=== PATIENT | male | born 1980 | race Caucasian/White ===

== ENCOUNTER 2019-07-30 08:01 | Outpatient (CLI) | payer OTHER, SELFPAY ==
[2019-07-30] VITALS (9 sets, daily range): BP systolic 106–123; BP diastolic 73–88; PULSE 66–98; RESP 16; TEMP 36.7; O2SAT 96–100
--- NOTE | 2019-07-30 08:03 | DI.RAD.S_ITS ---
PROCEDURE: PAIN C/T FACET INJ/BLK 1ST L INDICATIONS: SPONDYLOSIS WITH RADICULOPATHY FINDINGS: Fluoroscopic spot filming was performed to verify placement of spinal needles at the C4-C5, C5-C6 level(s), as labeled on the films. Appropriate location(s) of the needle tip(s) was confirmed by injection of iodinated contrast. Dictated by: Theron Hayward M.D. on 07/30/2019 at 11:29 Approved by: Theron Hayward M.D. on 07/30/2019 at 11:30
[2019-07-30] MEDS: MIDAZOLAM 5 MG/5 ML VIAL IV (09:12)
[2019-07-30] MEDS: fentaNYL 100 MCG/2 ML INJ 50 MCG IV (09:13)
[2019-07-30] MEDS: DEXAMETHASONE 10 MG/ML VIAL 20 MG INJ (09:19)
[2019-07-30] MEDS: IOPAMIDOL 15 ML VIAL 3 ML INJ (09:19)
[2019-07-30] MEDS: BUPIVACAINE 0.5% (PF) VIAL 2 ML INJ (09:19)
--- NOTE | 2019-07-30 09:20 | PC.NURSE ---
ASSISTING PT OFF TABLE AND TRANSPORTING TO POST PROC AREA IN STABLE CONDITION. PASSING RN CARE OF PT OFF TO LAUREEN Mills RN.
--- NOTE | 2019-07-30 09:23 | P.PCN_ITS ---
Procedures Date/Time Date of procedure: 07/30/19 Time of procedure: 09:23 General Procedure description: PREOP DIAGNOSIS 1. FACET ARTHROPATHY 2. AXIAL NECK PAIN POST OP DIAGNOSIS 1. FACET ARTHROPATHY 2. AXIAL NECK PAIN PROCEDURES 1. FLUOROSCOPICALLY GUIDED, CONTRAST-CONTROLLED LEFT C4/5, C5/6 FACET JOINT INJECTIONS WITH CONSCIOUS SEDATION. PHYSICIAN: Star Milligan, DO INDICATIONS [facility] is referred for treatment of Axial Neck Pain DESCRIPTION OF PROCEDURE Fluoroscopically guided, contrast-controlled left C4/5, C5/6 facet joint injections with conscious sedation. Following review of allergy and review of potential side effects and complications, including, but not necessarily limited to, infection, allergic reaction, local tissue breakdown, stroke, temporary or permanent nerve injury and paralysis, the patient indicated that the patient understood and agreed to proceed. An informed consent document was signed by the patient, witnessed by a nurse, and placed in the patient's chart. Additionally, other treatment options including medications, modalities, and physical therapy were reviewed with the patient. After review of previous anaesthesic history and IV conscious sedation the patient was deemed safe to proceed with todays procedure with IV conscious sedation as ASA class II designation. Safety time-out was performed to confirm patient ID, procedure to be performed and site of procedure. IV sedation was accomplished with a combination of 2mg of Versed and 50mcg of Fentanyl was administered by the RN after DO order, titrated to patient comfort during the course of the procedure while the patient remained responsive to all verbal commands In the prone position, following sterile prep and drape of the cervical spine region, the posterior aspect of the right C4/5, C5/6 facet joints were identifi ed fluoroscopically. The skin was anesthetized via a 25-gauge 1.5-inch needle with 1% lidocaine solution into the corresponding facet joints. At this point, a 25-gauge 2.5-inch spinal needle was atraumatically introduced and advanced under fluoroscopic guidance into the corresponding facet joints. Following negative aspiration, injections of approximately 0.2-cc of Isovue 200 confirmed interarticular placement without vascular uptake. At this point, a total of 1cc including 0.5cc or 5mg of dexamethasone combined with 0.5cc of 1% lidocaine solution was injected without complication into each of the corresponding facet joints. The patient tolerated the procedure well without signs or symptoms of complications prior to transfer to the recovery area continued monitoring without incident. The patient was then transferred to the recovery area where they were observed for an appropriate period of time after the injection. The patient reported a VAS score of 7 prior to the procedure and a post- procedure VAS of 0. Total Fluoroscopy Time: 6 seconds Total Conscious Sedation Time: 24 min POST OP INSTRUCTIONS They were provided a Pain Log to continue to record their response to the target-specific procedure prior to their follow-up visit with their referring physician. Additionally, specific post-injection care instructions and a contact number to our office were provided if concerns arise regarding possible complications associated with the procedure are suspected. Star Milligan, Complications: none
--- NOTE | 2019-07-30 10:00 | PC.NURSE ---
Post procedure note: Patient arrived awake and alert. 0/10 pain level. VSS. O2 Sat WNL. Handoff report received from [place] RN. Dishcarge instructions reviewed with patient with good understanding. Discharged to home with mother in law. Ambulated to car at 0945. No pain.
== END 2019-07-30 09:45 | disposition home or self-care (01) ==
LOC: RAD 08:02
PROVIDERS: Visit Provider Physical Medicine & Rehabilitation
DX: M47.812 Spondylosis without myelopathy or radiculopathy, cervical region (principal); M54.2 Cervicalgia
CPT/HCPCS: 64490; 64491; 99152; J1100; J2250; J3010